=== PATIENT | female | born 1985 | race Caucasian/White ===

== ENCOUNTER 2020-05-25 18:00 | Emergency (ER) | payer OTHER ==
[2020-05-25] MEDS ORDERED: diphenhydrAMINE 50 MG/ML VIAL ONE (19:09)
[2020-05-25] MEDS ORDERED: Acetaminophen 500 MG TAB ONE (19:09)
[2020-05-25] MEDS ORDERED: Ketorolac Tromethamine 30 MG/ML VIAL ONE (19:09)
[2020-05-25] MEDS ORDERED: Metoclopramide HCl 10 MG/2 ML VIAL ONE (19:09)
[2020-05-25 20:04] LABS: #Eosinphils 0.1 10x3/uL (0.0-0.5); #Monocytes 0.3 10x3/uL (0.0-1.1); #Neutrophils 4.5 10x3/uL (1.5-8.4); %Basophils 0.2 % (0.0-2.0); %Eosinophils 1.4 % (0.0-6.0); %Lymphocytes 11.8 % (18.0-47.0); %Monocytes 6.1 % (0.0-10.0); Hemoglobin 10.5 g/dL (12.0-15.5); Mean Corpuscular HGB CONC 31.5 g/dL (32.0-36.0); Mean Corpuscular Hemoglobin 26.4 pg (27.0-33.0); Mean Corpuscular Volume 83.9 fl (81.6-98.3); Mean Platelet Volume 9.5 fl (7.4-10.4); Platelet Count 218 10x3/uL (150-450); RBC Distribution Width 15.1 % (11.5-14.5); Red Blood Cell (RBC) Count 3.97 10x6/uL (3.90-5.03); White Blood Cell (WBC) Count 5.6 10x3/uL (3.5-10.5)
[2020-05-25 20:14] LABS: BHCG - Serum Negative (NEGATIVE); Pregs Control Background? CLEAR/WHITE (CLR/WHITE); Pregs Control Bar Appear? YES (CONTROL BAR)
[2020-05-25 20:19] LABS: Anion Gap 11 mmol/L (10-20); BUN (Urea Nitrogen) 8 mg/dL (7.0-18.7); Calc. Creatinine Clearance 0 mL/min (70-130); Carbon Dioxide 24 mmol/L (22-29); Chloride 106 mmol/L (98-107); Glucose 94 mg/dL (70-105); Potassium 3.6 mmol/L (3.5-5.1); Sodium 137 mmol/L (136-145)
[2020-05-25 21:47] LABS: SARS-CoV-2 NAA Rapid Test Not Detected (NotDetected)
== END 2020-05-25 23:01 | disposition short-term general hospital (02) ==
LOC: CSHERS 18:00 → EDBD 18:00 → CSHERS 23:01
DX: R51.9 Headache, unspecified (principal); Z20.822 Contact with and (suspected) exposure to COVID-19; K21.9 Gastro-esophageal reflux disease without esophagitis; Z79.899 Other long term (current) drug therapy
CPT/HCPCS: 36415; 70450; 70498; 80048; 84703; 85025; 96374; 96375; J1200; J1885; J2765; U0002

== ENCOUNTER 2021-01-05 12:35 | Outpatient (CLI) | payer OTHER | END 2021-01-05 12:36 | disposition home or self-care (01) | LOC: CSHULT 12:35 | PROVIDERS: ATTEND Family Medicine | DX: E04.1 Nontoxic single thyroid nodule (principal) | CPT/HCPCS: 76536 ==

== ENCOUNTER 2023-05-18 08:19 | Emergency (ER) | payer OTHER ==
[2023-05-18] MEDS ORDERED: Ketorolac Tromethamine 30 MG (1 mL) VIAL ONE (09:04)
[2023-05-18 09:51] LABS: Bilirubin Neg (Negative); Blood, Urine Negative (Negative); Clarity Clear (Clear); Glucose, Urine (Dipstick) Normal (Negative); Ketone, Urine Negative (Negative); Leukocyte Negative (Negative); Nitrite Negative (Negative); Protein, Urine (Dipstick) Negative (Neg-Trace); Urobilinogen Normal mg/dL (Less than 2)
[2023-05-18 09:54] LABS: Pregnancy Test - Urine (BHCG) Negative (Negative); Pregu Control Background? CLEAR/WHITE (CLR/WHITE); Pregu Control Bar Appear? YES (CONTROL BAR)
[2023-05-18 10:07] LABS: CAUTI Indications for Culture Pelvic or flank pain; RBC/HPF 0-3 HPF (0-3); WBC/HPF 0-3 HPF (0-3)
[2023-05-18 10:08] LABS: Bacteria/HPF Rare-Few HPF (None Seen)
[2023-05-18 10:09] LABS: Urine Culture Reflex No No
== END 2023-05-18 10:35 | disposition home or self-care (01) ==
LOC: CSHERS 08:19
DX: S39.011A Strain of muscle, fascia and tendon of abdomen, initial encounter (principal); M94.0 Chondrocostal junction syndrome [Tietze]; D25.9 Leiomyoma of uterus, unspecified; X58.XXXA Exposure to other specified factors, initial encounter
CPT/HCPCS: 74176; 81001; 81025; 96372; J1885